=== PATIENT | female | born 1950 | race Caucasian/White ===

== ENCOUNTER 2016-10-12 15:36 | Emergency (ER) | payer BC ==
[~2016-10-12] VITALS: Ht 162.6 cm; Wt 62.6 kg
--- NOTE | 2016-10-12 15:47 | NUR ---
BIB DAUGHTER AT BEDSIDE. PT IS A 66 Y/O FEMALE ACCOMPANIED BY DAUGHTER AT BEDSIDE. PT IS HIGHLY ANXIOUS, RESTLESS. HERE FOR EPIGASTRIC CP. PT IS AMBULATORY WITH STEADY GAIT. SPEAKING IN FULL SENTENCES. NAD NOTED. VSS. WCTM PT AT THIS TIME. WAITING FOR FURTHER PLAN OF CARE
[2016-10-12] MEDS ORDERED: ASPIRIN 325 MG TABLET PO ONE (16:00)
[2016-10-12] MEDS ORDERED: NITROGLYCERIN OINT 1 GM PACKET TP ONE ×2 (16:00→16:05)
--- NOTE | 2016-10-12 16:00 | NUR ---
ATTEMPTED TO GIVEN MEDICATION TO PT. PT REFUSED TO TAKE ASPIRIN AND NITRO AT THIS TIME. EXPLAINED RISKS AND BENEFITS. PT REFUSED. AT THIS TIME. MD AT BEDSIDE SPEAKING TO PT. DAUGHTER AT BEDSIDE AWARE OF PT'S REFUSAL. PT ALSO REFUSED XRAY; MD IS AWARE
[2016-10-12] MEDS ORDERED: ASPIRIN 325 MG TABLET ONE (16:05)
[2016-10-12 16:13] LABS: BASOPHILS # (AUTO) 0.1 K/uL (0.0-8.0); BASOPHILS % (AUTO) 0.9 % (0.0-2.0); EOSINOPHILS # (AUTO) 0.1 K/uL (0.0-0.7); EOSINOPHILS % (AUTO) 1.5 % (0.0-7.0); HEMATOCRIT 37.1 % (37-47); HEMOGLOBIN 12.5 G/DL (12.0-16.0); LYMPHOCYTES # (AUTO) 2.5 K/UL (0.8-4.8); LYMPHOCYTES % (AUTO) 34.2 % (20.5-51.5); MEAN CORPUSCULAR HGB CONC 34 g/dL (32.0-37.0); MONOCYTES # (AUTO) 0.4 K/UL (0.1-1.30); MONOCYTES % (AUTO) 5.4 % (0.0-11.0); NEUTROPHILS # (AUTO) 4.3 K/UL (1.8-8.9); PLATELET COUNT (AUTO) 229 K/UL (150-450); RED BLOOD CELL COUNT(AUTO) 4.31 MIL/UL (4.2-5.4); WHITE BLOOD COUNT (AUTO) 7.4 K/UL (4.0-11.2)
[2016-10-12 16:20] LABS: CREATININE 0.7 mg/dL (0.6-1.3); POTASSIUM 3.7 mmol/L (3.5-5.1)
[2016-10-12 16:25] LABS: BILIRUBIN,DIRECT 0.1 mg/dL (0.0-0.2); BILIRUBIN,TOTAL 0.5 mg/dL (0.2-1.0); TOTAL PROTEIN, SERUM 6.8 g/dL (6.4-8.2)
[2016-10-12 17:06] VITALS: BP 106/49
--- NOTE | 2016-10-12 17:08 | NUR ---
Patient discharged to home in stable conditon. Written and verbal after care instructions given. Patient verbalizes understanding of instructions.
== END 2016-10-12 17:09 | disposition home or self-care (01) ==
LOC: ER 15:36
DX: R07.9 Chest pain, unspecified (principal); F41.9 Anxiety disorder, unspecified
CPT/HCPCS: 36415; 70030-TC; 85025; 85730; 93005; A4663